=== PATIENT | female | born 1970 | race Two or more races ===

== ENCOUNTER 2023-05-02 10:32 | Outpatient (OUT) | payer OTHER, SELFPAY ==
--- NOTE | 2023-05-02 10:49 | US_ITS ---
[address] [address] Patient Name: GENE MURPHY MRN: [id number] date: 1970 Sex: F Assigned Patient Location: US Current Patient Location: US Accession/Order Number: [id number] Exam Date: 05/02/2023 11:05 Report Date: 05/02/2023 12:07 At the request of: NON-STAFF PHYSICIAN Procedure: US thyroid STUDY: US thyroid, [id number] HISTORY: Screening mammogram Z12.31 TECHNIQUE: Multiple 2 dimensional grayscale and color doppler images through the thyroid. COMPARISONS: Thyroid ultrasound 04/19/2022 FINDINGS: The thyroid is homogeneous in echotexture and demonstrates normal color Doppler flow. The right lobe measures 7.5 x 2.4 x 2.7 cm for a volume of 23.4 cc. The left lobe measures 7.1 x 2.3 x 2.3 cm for a volume of 17.6 cc. The isthmus measures 0.8 cm. Nodule 1 Size: 1.4 x 1.1 x 1.2 cm, previously 1.2 x 1 x 1.3, similar. Location: Inferior right thyroid lobe Composition: Solid or almost completely solid-2 Echogenicity: Hyperechoic or isoechoic-1 Shape: Wider than tall-0 Margin: Evw-umkybis-0 Echogenic foci: None or large comet tail artifacts-0 TI-RADS: 3 Nodule 2 Size: 1.1 x 1.2 x 1 cm, previously 1.3 x 0.9 x 0.8 cm, similar. Location: Mid left thyroid lobe Composition: Solid or almost completely solid-2 Echogenicity: Hypoechoic-2 Shape: Wider than tall-0 Margin: Hnu-plbxnzg-0 Echogenic foci: None or large comet tail artifacts-0 TI-RADS: 4 Several additional smaller nodules which are either cystic or spongiform morphology. US/US thyroid IMPRESSION: 1. The nodular goiter with the majority of the thyroid nodules with either a cystic or spongiform morphology. 2. Single TI-RADS 3 nodule in the right lobe of thyroid measuring up to 1.4 cm and a single TI-RADS 4 nodule in the left lobe of thyroid measuring up to 1.2 cm; similar size and appearance compared with 04/19/2022. Recommend follow-up ultrasound in one year. Electronically authenticated by: MERRY GOMEZ Date: 05/02/2023 12:07
== END 2023-05-02 10:33 | disposition home or self-care (01) ==
LOC: US 10:35
DX: E04.2 Nontoxic multinodular goiter (principal)
CPT/HCPCS: 76536

== ENCOUNTER 2024-05-08 10:12 | Outpatient (OUT) | payer OTHER, SELFPAY ==
--- NOTE | 2024-05-08 10:14 | US_ITS ---
[address] [address] Patient Name: GENE MURPHY MRN: [id number] date: 1970 Sex: F Assigned Patient Location: US Current Patient Location: Accession/Order Number: [id number] Exam Date: 05/08/2024 10:18 Report Date: 05/09/2024 04:56 At the request of: NON-STAFF PHYSICIAN Procedure: US thyroid EXAMINATION: US thyroid HISTORY: Nontoxic Multinodular Goiter COMPARISON: Ultrasound thyroid 05/02/2023 FINDINGS: RIGHT LOBE: Enlarged and heterogeneous. Contains a 1.4 cm TR 4 nodule within inferior pole. Contains several TR 3 nodules, largest is 1.4 cm within the inferior pole. Lobe size: 6.5 x 2.3 x 2.7 cm LEFT LOBE: Enlarged and heterogeneous. Contains a 1.2 cm TR 4 nodule within mid body and a 1.1 cm TR 3 nodule within inferior pole. Several colloid cysts. Lobe size: 7.0 x 2.1 x 2.4 cm ISTHMUS: Thickened and heterogeneous. Thickness: 11 mm US/US thyroid IMPRESSION: 1. Enlarged heterogeneous thyroid gland containing multiple small nodules suggestive of multinodular goiter. 2. Bilateral TR 4 nodules, 1.4 cm on right and 1.2 cm on left. Follow-up in one year recommended. TR4 (moderately suspicious): If > 1.0 cm, follow-up ultrasound in 1, 2, 3, and 5 years. If > 1.5 cm, fine needle aspiration (FNA). Electronically authenticated by: MALENA CALL Date: 05/09/2024 04:56
== END 2024-05-08 10:13 | disposition home or self-care (01) ==
LOC: US 10:12
DX: E04.2 Nontoxic multinodular goiter (principal)
CPT/HCPCS: 76536

== ENCOUNTER 2024-09-05 12:11 | Outpatient (OUT) | payer OTHER, SELFPAY ==
--- NOTE | 2024-09-05 12:13 | US_ITS ---
The [address] [address] Patient Name: GENE MURPHY MRN: [id number] date: 1970 Sex: F Assigned Patient Location: US Current Patient Location: US Accession/Order Number: [id number] Exam Date: 09/05/2024 12:15 Report Date: 09/05/2024 14:20 At the request of: NON-STAFF PHYSICIAN Procedure: US pelvis w/ transvaginal EXAMINATION: US pelvis w/ transvaginal HISTORY: pain with intercourse, dyspereunia N94.10 COMPARISON: No relevant comparison available. FINDINGS: Transabdominal and transvaginal images The uterus is not visualized consistent with hysterectomy The right ovary is not visualized. The left ovary is normal measuring 2.5 x 0.8 x 1.8 cm. Normal color and Doppler flow. 0.8 cm area of anechoic echogenicity, follicle versus cyst US/US pelvis w/ transvaginal IMPRESSION: No abnormality observed Electronically authenticated by: DIMITRI FRANCO Date: 09/05/2024 14:20
--- NOTE | 2024-09-05 12:15 | MM_ITS ---
Patient Name: GENE MURPHY MR#: [id number] : 1970 Exam Date: 09/05/2024 Ordering Doctor: Non-Staff Physician RADIOLOGY REPORT PROCEDURE: MM TOMOSYNTHESIS SCREENING BI COMPARISON: MM TOMOSYNTHESIS SCREENING BI, 08/19/2018. MM TOMOSYNTHESIS SCREENING BI, 08/22/2019. INDICATIONS: screening for malignant neoplasm of breast Calculator Name NCI Breast Cancer Risk Assessment Tool 5 Year Breast Cancer Risk 0.70% Lifetime Breast Cancer Risk 5.20% Personal Breast Cancer No Personal Ovarian Cancer No Treatments None Family Cancers None LOCATION: [facility] BREAST COMPOSITION: There are scattered areas of fibroglandular density. FINDINGS: DIAGNOSTIC CATEGORY 2--BENIGN FINDING. NO CHANGE FROM COMPARISON. Scattered benign-appearing lymph nodes are present. RIGHT BREAST: No significant suspicious finding. LEFT BREAST: No significant suspicious finding. RECOMMENDATIONS: ROUTINE MAMMOGRAM AND CLINICAL EVALUATION IN 12 MONTHS. PLEASE NOTE: A NORMAL MAMMOGRAM DOES NOT EXCLUDE THE POSSIBILITY OF BREAST CANCER. A CLINICALLY SUSPICIOUS PALPABLE LUMP SHOULD BE BIOPSIED. Dictated by: Percy Early MD on 09/05/2024 at 14:08 Approved by: Percy Early MD on 09/05/2024 at 14:08
--- OUTSIDE RECORDS SUMMARY | 2024-09-05 12:16 | XMS_ITS | CCD ---
Author Organization [facility] [place] [facility] Care Team Providers Care Transverse Abdominal Muscle Nurse Name Role Phone Unavailable Primary Care Provider UnavailWING Liang Referring Unavailable SHIRASITA MEDINA Referring Unavailable SHIRA, SITA Referring Unavailable SHIRA, SITA Referring Unavailable MOWING CASTRO F Referring Unavailable Unavailable Primary Care Provider Enzo guardado MISC, DOCTOR Attending Unavailable MISC, DOCTOR Consulting Unavailable MISC, DR CISNEROS Admitting Unavailable Services, [facility] Primary Care Provider AINSLEY KAPLAN Attending Unavailable SERVICES, [facility] Primary Care Unava ilable Allergies Allergy Classification Reported Allergen(s) Allergy Type Date of Onset Reaction(s) Facility (2 sources) Latex; Translations: [LATEX] Propensity to adverse reactions to drug 05-05-2020 [facility] Medications Current Medications Medication Drug Class(es) Dates Sig (Normalized) Sig (Original) amoxicillin 500 mg oral tablet (1 source) Penicillin-class Antibacterial End: 08-15-2024 take 1 tablet by mouth in the morning, then take 1 tablet by mouth at bedtime amoxicillin (AMOXIL) 500 MG tablet Take 1 tablet (500 mg total) by mouth in the morning and 1 tablet (500 mg total) before bedtime. 08/15/2024 Discontinued (Therapy completed) ascorbic acid 1000 mg oral tablet (1 source) Vitamin C End: 08-15-2024 take 1 tablet by mouth in the morning ascorbic acid, vitamin C, (VITAMIN C) 1000 mg tablet Take 1 tablet (1,000 mg total) by mouth in the morning. 08/15/2024 Discontinued (Therapy completed) cholecalciferol 0.01 mg chewable tablet (1 source) Vitamin D End: 08-15-2024 cholecalciferol, vitamin D3, 10 mcg (400 unit) tablet,chewable Chew and swallow. 08/15/2024 Discontinued (Therapy completed) elderberry fruit and flower 460-115 mg capsule (1 source) End: 08-15-2024 elderberry fruit and flower 460-115 mg capsule Take by mouth. 08/15/2024 Discontinued (Therapy completed) 24 hr metoprolol succinate 25 mg extended release oral tablet (5 sources) beta-Adrenergic Devika take 1 tablet by mouth once daily metoprolol succinate XL (TOPROL-XL) 25 mg 24 hr tablet Take 1 tablet (25 mg total) by mouth daily. Active zzraozzm-wlrx-YB-calc ium &mins (THERAGRAN-M) 9 mg iron-400 mcg tablet (1 source) sqpbngqw-aqpj-HD - calcium &mins (THERAGRAN-M) 9 mg iron-400 mcg tablet Take 1 tablet by mouth in the morning. Gummies cause of swallowing issues. Active Zinc Sulfate (1 source) End: 08-15-2024 zinc sulfate (ZINC-15 ORAL) Take by mouth. 08/15/2024 Discontinued (Therapy completed) Problems Active Problems Problem Classification Problem Date Documented Da te Episodic/Chronic Abdominal pain (2 sources) Pain in pelvis; Translations: [Pelvic and perineal pain] Onset: 08-15-2024 08-15-2024 Episodic Other female genital disorders (1 source) Pain in female genitalia on intercourse; Translations: [Unspecified dyspareunia] 08-15-2024 Chronic Other female genital disorders (1 source) Unspecified dyspareunia; Translations: [Unspecified dyspareunia] Onset: 08-15-2024 Chronic Other nutritional; endocrine; and metabolic disorders (1 source) Obese class I; Translations: [Obesity (BMI 30.0-34.9)] Onset: 08-15-2024 08-15-2024 Chronic Other screening for suspected conditions (not mental disorders or infectious disease) (2 sources) Patient encounter status; Translations: [Encounter for screening mammogram for malignant neoplasm of breast] Onset: 08-15-2024 08-15-2024 Episodic Screening and history of mental health and substance abuse codes (2 sources) Standardized adult depression screening tool completed ; Translations: [Encounter for screening for depression] Onset: 08-15-2024 08-15-2024 Episodic Thyroid disorders (8 sources) Non-toxic multinodular goiter; Translations: [Nontoxic multinodular goiter] Onset: 07-19-2018 Chronic Unclassified (1 source) Annual Exam Onset: 08-15-2024 Past or Other Problems Problem Classification Problem Date Documented Da te Episodic/Chronic Cardiac dysrhythmias (1 source) Tachycardia; Translations: [Tachycardia, unspecified] Onset: 07-19-2018 10-04-2022 Episodic Mood disorders (1 source) Mood disorders Onset: 08-15-2024 08-15-2024 Unclassified (1 source) Onset: 08-15-2024 08-15-2024 Results Test Name Value Interpretation Reference Range Facil ity US THYROIDon 04-20-2022 US THYROID EXAMINATION: US THYROID HISTORY: Non-toxic multinodular goiter COMPARISON: Ultrasound thyroid 01/12/2015 FINDINGS: RIGHT LOBE: Enlarged, heterogeneous thyroid lobe containing numerous nodules. The 3 largest are 16 mm TR 3, 13 mm TR 3, 12 mm TR 2. Lobe size: 6.4 x 2.2 x 2.5 cm LEFT LOBE: Enlarged, heterogeneous thyroid lobe containing numerous nodules. The 3 largest/no suspicious 13 mm TR 4, 10 mm TR 4, 12 mm TR 2. Lobe size: 5.9 x 2.0 x 2.3 cm. ISTHMUS: Heterogeneous and thickened. Thickness: 6 mm IMPRESSION: 1. Enlarged, heterogeneous thyroid gland with numerous nodules suggestive of multinodular goiter. Follow-up in one year recommended. TR4 (moderately suspicious): If > 1.0 cm Follow-up ultrasound in 1, 2, 3, and 5 years. If > 1.5 cm fine needle aspiration (FNA). TR3 (mildly suspicious): > 1.5 cm, follow-up ultrasound in 1, 3, and 5 years. > 2.5 cm, fine needle aspiration. Electronically authenticated by: MALENA CALL Date: 2022-04-20 07:40 Normal [facility] BASIC METABOLIC PANELon 10-04 Calcium [Mass/Vol] 9.6 mg/dL Normal 8.6-10.3 [facility] Comment on above: Performed By: #### 0 0071 #### [facility] [address] [place] [address], [facility] Chloride [Moles/Vol] 102 mmol/L Normal 98-107 [facility] Comment on above: Performed By: #### 0 0071 #### [facility] [address] [place] [address], [place] CO2 [Moles/Vol] 27 mmol/L Normal 21-31 [facility] Comment on above: Performed By: #### 0 0071 #### [facility] [address] [place] [address], [place] Creatinine [Mass/Vol] 0.91 mg/dL Normal 0.60-1.20 [facility] Comment on above: Performed By: #### 0 0071 #### [facility] [address] [place] [address], [place] GFR/1.73 sq M predicted among blacks MDRD (S/P/Bld) [Vol rate/Area] mL/min/{1.73_m2} Normal >60 [facility] Comment on above: Performed By: #### 0 0071 #### [facility] [address] [place] [address], [place] GFR/1.73 sq M predicted among non-blacks MDRD (S/P/Bld) [Vol rate/Area] mL/min/{1.73_m2} Normal >60 [facility] Comment on above: Performed By: #### 0 0071 #### [facility] [address] [place] [address], [place] Glucose [Mass/Vol] 88 mg/dL Normal 70-100 [facility] Comment on above: Performed By: #### 0 0071 #### [facility] [address] [place] [address], [place] Potassium [Moles/Vol] 4.0 mmol/L Normal 3.5-5.1 [facility] Comment on above: Performed By: #### 0 0071 #### [facility] [address] [place] [address], [place] Sodium [Moles/Vol] 136 mmol/L Normal 136-145 [facility] Comment on above: Performed By: #### 0 0071 #### [facility] [address] [address], [facility] Urea nitrogen [Mass/Vol] 20 mg/dL Normal 7-25 [facility] Comment on above: Performed By: #### 0 0071 #### [facility] [address] [place] [address], [facility] URINALYSISon 10-15-2020 Appearance (U) CLEAR Normal CLEAR [facility] Comment on above: Performed By: #### 1 0008 #### [facility] [address] [place] [address], [facility] Bilirubin [Mass/Vol] Negative Normal NEGATIVE [facility] Comment on above: Performed By: #### 1 0008 #### [facility] [address] [place] [address], [place] BLOOD Negative Normal NEGATIVE [facility] Comment on above: Performed By: #### 1 0008 #### [facility] [address] [facility] [place] [address], [place] Color (U) YELLOW Normal YELLOW [facility] Comment on above: Performed By: #### 1 0008 #### [facility] [address] [facility] [place] [address], [facility] Glucose [Mass/Vol] Negative Normal NEGATIVE [facility] Comment on above: Performed By: #### 1 0008 #### [facility] [address] [place] [address], [place] KETONE Negative Normal NEGATIVE [facility] Comment on above: Performed By: #### 1 0008 #### [facility] [address] [place] [address], [place] LEUK BRITTNY Negative Normal NEGATIVE [facility] Comment on above: Performed By: #### 1 0008 #### [facility] [address] MICRO NOT DONE Normal [facility] Comment on above: Result Comment: Micr oscopics not performed on urines with negative chemical reactions unless requested in original order Performed By: #### 1 0008 #### [facility] [address] Nitrite Ql (U) Negative Normal NEGATIVE [facility] Comment on above: Performed By: #### 1 0008 #### [facility] [address] pH (Bld) 6.0 Normal 5.0-8.0 [facility] Comment on above: Performed By: #### 1 0008 #### [facility] [address] Protein (U) [Mass/Vol] Negative Normal NEGATIVE [facility] Comment on above: Performed By: #### 1 0008 #### [facility] [address] SPEC GRAV 1.017 Normal 1.015-1.020 [facility] Comment on above: Performed By: #### 1 0008 #### [facility] [address] US THYROIDon 01-15-2020 US THYROID EXAMINATION: THYROID ULTRASOUND 01/14/2020 COMPARISON: Thyroid ultrasound dated 08/25/2019. Fine-needle aspiration dated 02/13/2019. HISTORY: ORDERING SYSTEM PROVIDED HISTORY: Nontoxic multinodular goiter TECHNOLOGIST PROVIDED HISTORY: Reason for Exam: goiter Acuity: Chronic Type of Exam: Subsequent/Follow-up Previous benign biopsy. FINDINGS: Right thyroid lobe: 6.6 x 2.4 x 2.7 cm Left thyroid lobe: 6.5 x 2.1 x 2.5 cm Isthmus: 1.1 cm Thyroid Gland: The thyroid gland is enlarged and diffusely heterogeneous. There is no abnormal hyperemia. Nodules: Multiple partially cystic and spongiform nodules are seen in both thyroid lobes, not significantly changed from the prior. The largest on the right measures up to 1.1 cm. Largest on the left measures up to 1.6 cm. Cervical lymphadenopathy: No abnormal lymph nodes in the imaged portions of the neck. IMPRESSION: Unchanged bilateral thyroid nodules with reported history of benign biopsy. Need for continued follow-up thyroid ultrasound should be determined clinically. Interpreted by: Debo Garcia DO Signed by: Debo Garcia DO 01/15/20 Final result Normal [facility] Unchanged bilateral thyroid nodules with reported history of benign biopsy. Need for continued follow-up thyroid ultrasound should be determined clinically. [facility] MD EXAMINATION: THYROID ULTRASOUND 01/14/2020 COMPARISON: Thyroid ultrasound dated 08/25/2019. Fine-needle aspiration dated 02/13/2019. HISTORY: ORDERING SYSTEM PROVIDED HISTORY: Nontoxic multinodular goiter TECHNOLOGIST PROVIDED HISTORY: Reason for Exam: goiter Acuity: Chronic Type of Exam: Subsequent/Follow-up Previous benign biopsy. FINDINGS: Right thyroid lobe: 6.6 x 2.4 x 2.7 cm Left thyroid lobe: 6.5 x 2.1 x 2.5 cm Isthmus: 1.1 cm Thyroid Gland: The thyroid gland is enlarged and diffusely heterogeneous. There is no abnormal hyperemia. Nodules: Multiple partially cystic and spongiform nodules are seen in both thyroid lobes, not significantly changed from the prior. The largest on the right measures up to 1.1 cm. Largest on the left measures up to 1.6 cm. Cervical lymphadenopathy: No abnormal lymph nodes in the imaged portions of the neck. [facility] MD Oneil, Mh[employer] Incoming Radiant Results From [employer] - 01/15/2020 5:01 PM EDT EXAMINATION: THYROID ULTRASOUND 01/14/2020 COMPARISON: Thyroid ultrasound dated 08/25/2019. Fine-needle aspiration dated 02/13/2019. HISTORY: ORDERING SYSTEM PROVIDED HISTORY: Nontoxic multinodular goiter TECHNOLOGIST PROVIDED HISTORY: Reason for Exam: goiter Acuity: Chronic Type of Exam: Subsequent/Follow-up Previous benign biopsy. FINDINGS: Right thyroid lobe: 6.6 x 2.4 x 2.7 cm Left thyroid lobe: 6.5 x 2.1 x 2.5 cm Isthmus: 1.1 cm Thyroid Gland: The thyroid gland is enlarged and diffusely heterogeneous. There is no abnormal hyperemia. Nodules: Multiple partially cystic and spongiform nodules are seen in both thyroid lobes, not significantly changed from the prior. The largest on the right measures up to 1.1 cm. Largest on the left measures up to 1.6 cm. Cervical lymphadenopathy: No abnormal lymph nodes in the imaged portions of the neck. IMPRESSION: Unchanged bilateral thyroid nodules with reported history of benign biopsy. Need for continued follow-up thyroid ultrasound should be determined clinically. [place], [place] T3, Freeon 01-14-2020 Free T3 [Mass/Vol] 3.67 pg/mL Normal 2.02-4.43 [facility] Comment on above: Performed By: #### F T4, TSH #### [facility] [address] [place], [place] [id number] Casino Worker: Keith Calixto DO #### FT3 #### [facility] [place], [place] [id number] Casino Worker: Gagandeep Doyle MD Free T3 [Mass/Vol] 3.67 pg/mL 2.02 - 4. 43 pg/mL [place], [place] T4, Freeon 01-14-2020 Thyroxine, Free 1.04 ng/dL 0.93 - 1.7 ng/dL [place], [place] TSH without Reflexon 020 TSH Qn 0.46 m[IU]/L [place], [place] Thyroid Stim. Horm.on 2019 TSH Qn 0.46 m[IU]/L Normal 0.30-5.00 [facility] Comment on above: Performed By: #### F T4, TSH #### [facility] [address] [place] [address] Casino Worker: Keith Calixto DO #### FT3 #### [employer] [address] [place], [place] [phone] Casino Worker: Gagandeep Doyle MD Thyroxine, Freeon 01-14-2020 Thyroxine, Free 1.04 ng/dL Normal 0.93-1.70 [facility] Comment on above: Performed By: #### F T4, TSH #### [facility] [address] [place] [address] Casino Worker: Keith Calixto DO #### FT3 #### [facility] [employer] [address] [place] [address] [id number] Casino Worker: Gagandeep Doyle MD T3, Freeon 08-25-2019 Free T3 [Mass/Vol] 3.42 pg/mL Normal 2.02-4.43 [facility] Comment on above: Performed By: #### F T4, TSH #### [facility] [address] [place] [address] Casino Worker: Keith Calixto DO #### FT3 #### [facility] [employer] [address] [place] [address] [phone] Casino Worker: Gagandeep Doyle MD T3, FreeOrdered By: Ondina Silva on 08-25-2019 Free T3 [Mass/Vol] 3.42 pg/mL 2.02 - 4. 43 pg/mL [facility] Phone: T4, FreeOrdered By: Ondina Silva on 08-25-2019 Thyroxine, Free 1.06 ng/dL 0.93 - 1.7 ng/dL [employer] Phone: TSH without ReflexOrdered By : Sita Silva on 08-25-2019 TSH Qn 0.61 m[IU]/L [facility] Phone: Thyroid Stim. Horm.on 2018 TSH Qn 0.61 m[IU]/L Normal 0.30-5.00 [facility] Comment on above: Performed By: #### F T4, TSH #### [facility] [address] [place] [address] Casino Worker: Keith Calixto DO #### FT3 #### [facility] [employer] [address] [place], [place] [id number] Casino Worker: Gagandeep Doyle MD Thyroxine, Freeon 08-25-2019 Thyroxine, Free 1.06 ng/dL Normal 0.93-1.70 [facility] Comment on above: Performed By: #### F T4, TSH #### [facility] [address] [place], [place] [phone] Casino Worker: Keith Calixto DO #### FT3 #### [facility] [address] [place], [place] [phone] Casino Worker: Gagandeep Doyle MD US THYROIDon 08-25-2019 US THYROID EXAMINATION: THYROID ULTRASOUND, 08/25/2019 COMPARISON: Biopsy images 02/13/2019, outside study 01/08/2019 HISTORY: ORDERING SYSTEM PROVIDED HISTORY: Nontoxic multinodular goiter TECHNOLOGIST PROVIDED HISTORY: Reason for Exam: nontoxic multinodular goiter Acuity: Chronic Type of Exam: Subsequent/Follow-up FINDINGS: Right thyroid lobe: 24.7 x 26.6 x 61.9 mm Left thyroid lobe: 20.5 x 25.4 x 63.9 mm Isthmus: 11.6 mm Thyroid Gland: Thyroid gland remains heterogeneous with normal vascularity. Thyroid gland is enlarged. Nodules: There are multiple predominantly hypoechoic subcentimeter and cystic bilateral thyroid nodules, overall probably similar in comparison to the prior study. Several small colloid cysts. The largest nodule on the right measures up to 9 mm. No specific follow-up imaging is recommended for these small subcentimeter nodules. The largest in the left lobe which was previously biopsied measures 13.9 x 12.3 x 9.5 mm. No new dominant solid-appearing nodules are seen. NODULE: Left 1 Size: 13.9 x 12.3 x 9.5 mm Location: Left mid posterior 1. Composition: Almost completely solid (2) 2. Echogenicity: Hypoechoic (2) 3. Shape: [id number]-jjfi (0) 4. Margins: Ill-defined (0) 5. Echogenic foci: None (0) ACR TI-RADS total points: 4 ACR TI-RADS risk category: TR4 Prior biopsy: Yes.Benign Significant growth: No. Change in features: No. Change in ACR TI-RADS risk category: No. Cervical lymphadenopathy: No abnormal lymph nodes in the imaged portions of the neck. IMPRESSION: Similar enlarged heterogeneous multinodular gland; the majority of the nodules are well under 1 cm in size and no specific follow-up imaging is recommended. The largest TR 4 nodule in the left lobe measures up to 1.4 cm and has been previously biopsied (with reportedly benign results). RECOMMENDATIONS: NODULE 1: ACR TI-RADS TR4: Recommend: Follow-up ultrasound in 1 year. ACR TI-RADS recommendations: TR5 (>= 7 points): FNA if >= 1 cm; follow-up if 0.5-0.9 cm in 1, 2, 3, 4, and 5 years TR4 (4-6 points): FNA if >= 1.5 cm; follow-up if 1.0-1.4 cm in 1, 2, 3, and 5 years TR3 (3 points): FNA if >= 2.5 cm; follow-up if 1.5-2.4 cm in 1, 3, and 5 years TR2 (2 points): No FNA or follow-up TR1 (0 points): No FNA or follow-up ACR TI-RADS recommends that no more than two nodules with the highest ACR TI-RADS point total should be biopsied and no more than four nodules should be followed. Interpreted by: Richie Gama MD Signed by: Richie Gama MD 08/25/19 Final result Normal [facility] US THYROIDOrdered By: Jorge Silva on 08-25-2019 Similar enlarged heterogeneous multinodular gland; the majority of the nodules are well under 1 cm in size and no specific follow-up imaging is recommended. The largest TR 4 nodule in the left lobe measures up to 1.4 cm and has been previously biopsied (with reportedly benign results). RECOMMENDATIONS: NODULE 1: ACR TI-RADS TR4: Recommend: Follow-up ultrasound in 1 year. ACR TI-RADS recommendations: TR5 (>= 7 points): FNA if >= 1 cm; follow-up if 0.5-0.9 cm in 1, 2, 3, 4, and 5 years TR4 (4-6 points): FNA if >= 1.5 cm; follow-up if 1.0-1.4 cm in 1, 2, 3, and 5 years TR3 (3 points): FNA if >= 2.5 cm; follow-up if 1.5-2.4 cm in 1, 3, and 5 years TR2 (2 points): No FNA or follow-up TR1 (0 points): No FNA or follow-up ACR TI-RADS recommends that no more than two nodules with the highest ACR TI-RADS point total should be biopsied and no more than four nodules should be followed. [employer] Phone: EXAMINATION: THYROID ULTRASOUND, 08/25/2019 COMPARISON: Biopsy images 02/13/2019, outside study 01/08/2019 HISTORY: ORDERING SYSTEM PROVIDED HISTORY: Nontoxic multinodular goiter TECHNOLOGIST PROVIDED HISTORY: Reason for Exam: nontoxic multinodular goiter Acuity: Chronic Type of Exam: Subsequent/Follow-up FINDINGS: Right thyroid lobe: 24.7 x 26.6 x 61.9 mm Left thyroid lobe: 20.5 x 25.4 x 63.9 mm Isthmus: 11.6 mm Thyroid Gland: Thyroid gland remains heterogeneous with normal vascularity. Thyroid gland is enlarged. Nodules: There are multiple predominantly hypoechoic subcentimeter and cystic bilateral thyroid nodules, overall probably similar in comparison to the prior study. Several small colloid cysts. The largest nodule on the right measures up to 9 mm. No specific follow-up imaging is recommended for these small subcentimeter nodules. The largest in the left lobe which was previously biopsied measures 13.9 x 12.3 x 9.5 mm. No new dominant solid-appearing nodules are seen. NODULE: Left 1 Size: 13.9 x 12.3 x 9.5 mm Location: Left mid posterior 1. Composition: Almost completely solid (2) 2. Echogenicity: Hypoechoic (2) 3. Shape: Gvelt-ltcr-tdli (0) 4. Margins: Ill-defined (0) 5. Echogenic foci: None (0) ACR TI-RADS total points: 4 ACR TI-RADS risk category: TR4 Prior biopsy: Yes.Benign Significant growth: No. Change in features: No. Change in ACR TI-RADS risk category: No. Cervical lymphadenopathy: No abnormal lymph nodes in the imaged portions of the neck. [employer] Phone: Oneil, [place] Incoming Radiant Results From [employer] - 08/25/2019 5:06 PM EST EXAMINATION: THYROID ULTRASOUND, 08/25/2019 COMPARISON: Biopsy images 02/13/2019, outside study 01/08/2019 HISTORY: ORDERING SYSTEM PROVIDED HISTORY: Nontoxic multinodular goiter TECHNOLOGIST PROVIDED HISTORY: Reason for Exam: nontoxic multinodular goiter Acuity: Chronic Type of Exam: Subsequent/Follow-up FINDINGS: Right thyroid lobe: 24.7 x 26.6 x 61.9 mm Left thyroid lobe: 20.5 x 25.4 x 63.9 mm Isthmus: 11.6 mm Thyroid Gland: Thyroid gland remains heterogeneous with normal vascularity. Thyroid gland is enlarged. Nodules: There are multiple predominantly hypoechoic subcentimeter and cystic bilateral thyroid nodules, overall probably similar in comparison to the prior study. Several small colloid cysts. The largest nodule on the right measures up to 9 mm. No specific follow-up imaging is recommended for these small subcentimeter nodules. The largest in the left lobe which was previously biopsied measures 13.9 x 12.3 x 9.5 mm. No new dominant solid-appearing nodules are seen. NODULE: Left 1 Size: 13.9 x 12.3 x 9.5 mm Location: Left mid posterior 1. Composition: Almost completely solid (2) 2. Echogenicity: Hypoechoic (2) 3. Shape: Dmwtb-bhew-tkhd (0) 4. Margins: Ill-defined (0) 5. Echogenic foci: None (0) ACR TI-RADS total points: 4 ACR TI-RADS risk category: TR4 Prior biopsy: Yes.Benign Significant growth: No. Change in features: No. Change in ACR TI-RADS risk category: No. Cervical lymphadenopathy: No abnormal lymph nodes in the imaged portions of the neck. IMPRESSION: Similar enlarged heterogeneous multinodular gland; the majority of the nodules are well under 1 cm in size and no specific follow-up imaging is recommended. The largest TR 4 nodule in the left lobe measures up to 1.4 cm and has been previously biopsied (with reportedly benign results). RECOMMENDATIONS: NODULE 1: ACR TI-RADS TR4: Recommend: Follow-up ultrasound in 1 year. ACR TI-RADS recommendations: TR5 (>= 7 points): FNA if >= 1 cm; follow-up if 0.5-0.9 cm in 1, 2, 3, 4, and 5 years TR4 (4-6 points): FNA if >= 1.5 cm; follow-up if 1.0-1.4 cm in 1, 2, 3, and 5 years TR3 (3 points): FNA if >= 2.5 cm; follow-up if 1.5-2.4 cm in 1, 3, and 5 years TR2 (2 points): No FNA or follow-up TR1 (0 points): No FNA or follow-up ACR TI-RADS recommends that no more than two nodules with the highest ACR TI-RADS point total should be biopsied and no more than four nodules should be followed. [employer] Phone: IR BIOPSY THYROID PERC CORE NEEDLEon 02-13-2019 IR BIOPSY THYROID PERC CORE NEEDLE PROCEDURE: ULTRASOUND GUIDED THYROID FNA 02/13/2019 COMPARISON: Outside thyroid ultrasound 01/08/2019 HISTORY: ORDERING SYSTEM PROVIDED HISTORY: Nontoxic multinodular goiter Left thyroid nodule approximately 1.5 cm, for biopsy; patient has a history of bilateral thyroid nodule biopsy in 2017. TECHNIQUE AND FINDINGS: This procedure was performed by Dr. Gama. Informed consent was obtained after the procedure was discussed in detail including the risk, benefits, and alternatives. [place] protocol was followed. The neck was prepped and draped in sterile fashion and local anesthesia was achieved with lidocaine. 25 gauge needle was advanced under ultrasound guidance into a 1.5 cm heterogeneous hypoechoic left posterior mid thyroid nodule and fine-needle aspiration was performed. 3 passes were performed and the patient tolerated the procedure well. Ultrasound images show placement of the needle within the nodule on all occasions. Samples were handed directly to the pathologist for review. Preliminary evaluation confirms adequate specimens for assessment. Postprocedure images show no local complication. Band-Aid was applied. The patient left the department in stable condition. IMPRESSION: Successful ultrasound-guided fine-needle aspiration of the largest nodule in the left lobe of thyroid gland. Multinodular gland. Interpreted by: Richie Gama MD Signed by: Richie Gama MD 02/13/19 Final result Normal [facility] Surgical Pathologyon 019 Surgical Pathology (NOTE) [id number] [facility] [address] [facility] [address] [facility]. [place], [place] [address] SURGICAL PATHOLOGY REPORT Patient Name: AGNIESZKA MURPHY MR#: [id number] Specimen #[id number] Final Diagnosis SPECIMEN A : LEFT THYROID NODULE, FINE NEEDLE ASPIRATION: ADEQUATE FOR EVALUATION CONSISTENT WITH BENIGN FOLLICULAR NODULE/NODULAR GOITER NEGATIVE FOR MALIGNANT CELLS SPECIMEN B : LEFT THYROID NODULE, CELL BLOCK: CONSISTENT WITH BENIGN FOLLICULAR NODULE/NODULAR GOITER NEGATIVE FOR MALIGNANT CELLS Walter Chavez M.D. Electronically Signed Out j/02/14/2019 Frozen Section Diagnosis Left thyroid nodule, FNA, pass #1-#3: Adequate. On site evaluation conveyed to Dr. Gama on , at 1:40 pm (Philomena Chavez MD) Clinical Information Left thyroid nodule FNA, bilateral thyroid multiple nodules Source: A: Left thyroid aspirate, smears, cytospins, Diff Quik B: Left thyroid aspirate, sediment (needle rinse) Gross Description Specimen A : The specimen consists of the aspirate of the left thyroid. Three Papanicolaou stained smears and three Diff-Quik are prepared for microscopic examination. Specimen B : The specimen consists of the sediment (needle rinse) from the left thyroid. The entire specimen is submitted for cell block preparation. Microscopic Description A. Five Pap stained smear slides and three Diff-Quik stained smear slides are reviewed. Microscopic examination is performed. B. Two LEXII stained cell block slides are reviewed. Microscopic examination is performed. Normal [facility] Comment on above: Performed By: #### P PPES #### [facility] [address] [place] [address] Casino Worker: Jase Tam MD Vital Signs Date Time Vital Sign Value Performing Clinician Siena henson 08-15-2024 09:35-0500 Body height 157.5 cm Ainsley Cindy NUMERICAL CONTROL NESTING OPERATOR-SENIOR FINANCE MANAGER Work Phone: [facility] 08-15-2024 09:35-0500 Body mass index (BMI) [Ratio] 30.03 kg/m2 Ainsley Kaplan NUMERICAL CONTROL NESTING OPERATOR-SENIOR FINANCE MANAGER Work Phone: [facility] 08-15-2024 09:35-0500 Body weight 74.48 kg Ainsley Kaplan NUMERICAL CONTROL NESTING OPERATOR-SENIOR FINANCE MANAGER Work Phone: [facility] 08-15-2024 09:35-0500 Diastolic blood pressure 74 mm[Hg] Ainsley Kaplan NUMERICAL CONTROL NESTING OPERATOR-SENIOR FINANCE MANAGER Work Phone: [facility] 08-15-2024 09:35-0500 Systolic blood pressure 124 mm[Hg] Ainsley Kaplan NUMERICAL CONTROL NESTING OPERATOR-SENIOR FINANCE MANAGER Work Phone: [facility] Encounters Encounter Date Encounter Type Care Provider Facility Start: 08-15-2024 End: 08-15-2024 Patient encounter procedure Ainsley Kaplan NUMERICAL CONTROL NESTING OPERATOR-SENIOR FINANCE MANAGER Work Phone: [facility] Start: 08-15-2024 End: 08-15-2024 Periodic preventive med est patient 40-64yrs Ainsley Kaplan NUMERICAL CONTROL NESTING OPERATOR-SENIOR FINANCE MANAGER Work Phone: [facility] Comment on above: Well woman exam with routine gynecological exam (Primary Dx); Screening mammogram for breast cancer; Standardized adult depression screening tool completed; Dyspareunia, female; Pelvic pain Start: 08-15-2024 End: 08-15-2024 ambulatory [facility] Start: 08-15-2024 Encounter for gynecological examination (general) (routine) without abnormal findings AINSLEY M [facility] Start: 04-19-2022 End: 04-20-[address] CISNEROS [facility] Facility: Start: 01-14-2020 End: 01-17-2020 Patient encounter procedure [facility] Start: 01-14-2020 End: 01-16-2020 Subsequent hospital visit by physician [facility] Ultrasound Rm 105 [facility] Comment on above: Nontoxic multinodula r goiter Start: 08-25-2019 End: 08-28-2019 Patient encounter procedure [facility] Start: 08-25-2019 End: 08-27-2019 Subsequent hospital visit by physician [facility] Comment on above: Nontoxic multinodula r goiter Start: 02-13-2019 End: 02-16-2019 Patient encounter procedure WING F MOOSA [facility] Procedures Date Procedure Procedure Detail Performing Clinician Start: 08-15-2024 Adult depression screening assessment Ainsley Kaplan NUMERICAL CONTROL NESTING OPERATOR-SENIOR FINANCE MANAGER Work Phone: Start: 10-04-2022 H/O: hysterectomy S/P hysterectomy Ainsley Kaplan NUMERICAL CONTROL NESTING OPERATOR-SENIOR FINANCE MANAGER Work Phone: Start: 01-14-2020 Us soft tissue head & neck real time imge docm WING MOOSA Start: 01-14-2020 Assay of free thyroxine WING MOOSA Start: 01-14-2020 Assay of thyroid stimulating hormone tsh WING MOOSA Start: 01-14-2020 Assay of triiodothyronine t3 free WING MOOSA Start: 01-14-2020 Us soft tissue head & neck real time imge docm Wing F Moosa Work Phone: Start: 01-14-2020 Assay of free thyroxine Sita Alliso n Work Phone: Start: 01-14-2020 Assay of thyroid stimulating hormone tsh Sita Shira Work Phone: Start: 01-14-2020 Assay of triiodothyronine t3 free Sita Shira Work Phone: Start: 08-25-2019 Us soft tissue head & neck real time imge docm WING MOOSA Start: 08-25-2019 Assay of free thyroxine WING MOOSA Start: 08-25-2019 Assay of thyroid stimulating hormone tsh WING MOOSA Start: 08-25-2019 Assay of triiodothyronine t3 free WING MOOSA Start: 08-25-2019 Us soft tissue head & neck real time imge docm Sita Shira NUMERICAL CONTROL NESTING OPERATOR - SENIOR FINANCE MANAGER Work Phone: Start: 08-25-2019 Assay of free thyroxine Sita Alliso n NUMERICAL CONTROL NESTING OPERATOR - SENIOR FINANCE MANAGER Work Phone: Start: 08-22-2019 Mammography Ainsley Kaplan NUMERICAL CONTROL NESTING OPERATOR-SENIOR FINANCE MANAGER Work Phone: Start: 02-13-2019 Biopsy thyroid percutaneous core needle WING GODFREY Start: 02-13-2019 Level i surg pathology gross examination only WING GODFREY Start: 10-30-2018 H/O: kidney donation History of kidney donation Ainsley Kaplan NUMERICAL CONTROL NESTING OPERATOR-SENIOR FINANCE MANAGER Work Phone: Plan of Treatment Date Care Activity Detail Author Start: 08-15-2025 [facility] Start: 08-15-2025 Depression Screening [facility] Start: 08-15-2025 Tobacco Screening [facility] Start: 08-15-2024 End: 08-15-2025 DBT Breast - bilateral screening Mammography screening bilateral with CAD Imaging Routine Screening mammogram for breast cancer Expected: 08/15/2024, Expires: 08/15/2025 [employer] Work Phone: Comment on above: Expected: 08/15/2024 , Expires: 08/15/2025 Start: 08-15-2024 End: 08-15-2025 US Pelvis transabdominal and transvaginal Ultrasound pelvic with transvaginal Imaging Routine Dyspareunia, female Pelvic pain Expected: 08/15/2024, Expires: 08/15/2025 [facility] Comment on above: Expected: 08/15/2024 , Expires: 08/15/2025 Start: 05-04-2024 Influenza vaccination [facility] ine [facility] Start: 10-04-2023 Adult BMI Follow Up Plan Adult BMI Follow Up Plan [facility] Start: 08-22-2020 Screening for malign [facility]oplasm [facility] Start: 05-04-2020 Influenza vaccination Flu vacc ine (Season Ended) [place] Start: 05-04-2019 Influenza vaccination Flu vaccine (# 1) [employer] Phone: Start: 2018 Administration of varicella zoster vaccine Zoster (Shingles) Vaccine (1 of 2) [facility] Start: 2018 Breast cancer screen Breast cancer s crecaryn [place] Work Phone: Start: 2018 Colon cancer screen colonoscopy Colon cancer screen colonoscopy [facility] [employer] Phone: Start: 2018 Screening for malign ant neoplasm of breast Breast cancer screen [place], [place] Start: 2018 Screening for malign ant neoplasm of colon Colon cancer screen colonoscopy [place], [place] Start: 2018 Shingles Vaccine (1 of 2) Aviles gles Vaccine (1 of 2) [facility] [employer] Phone: Start: 2008 Lipid panel Lipid screen [place], [place] Start: 2008 Lipid screen Lipid screen [facility] [employer] Phone: Start: 1989 Cervical cancer screen Cervical canc er screen [facility] Phone: Start: 1989 Screening for malign ant neoplasm of cervix Cervical cancer screen [place], [place] Start: 12-21-1987 DTaP,Tdap and Td Vac cines (1 - Tdap) DTaP,Tdap and Td Vaccines (1 - Tdap) [facility] Start: 12-21-1987 DTaP/Tdap/Td vaccine (1 - Tdap) DTaP/Tdap/Td vaccine (1 - Tdap) [place], [place] Start: 12-21-1983 HIV screen HIV screen [facility] [employer] Phone: Start: 12-21-1983 HIV screening HIV screen [place], [place] Start: 12-21-1979 DTaP/Tdap/Td vaccine (1 - Tdap) DTaP/Tdap/Td vaccine (1 - Tdap) [facility] Phone: Payers Date Payer Category Payer Private Health Insurance NATI THOMAS xxxxxxxxx 2016-Present [phone] [address] [place] [address] xxxxxxxxx [id number] 2012 Commercial 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 C are - POS [employer] [id number] 1968 Unknown [id number] 1968 Unknown [id number] 1968 Unknown [id number] 1968 Unknown [id number] 1968 Unknown [id number] 1968 Unknown [id number] 1968 Unknown [id number] 1959 Private Health Insurance [id number] Social History Date Type Detail Facility [facility] [employer] Work Phone: Start: 1970 Sex Assigned At Not on file [employer] Phone: Start: 10-04-2022 [facility] Never [facility] tobacco [facility] Start: 10-04-2022 Tobacco use and exposure Smokeless tobacco non-user [facility] Start: 08-15-2024 Alcoholic beverage intake Lifetime non-drinker (finding) [facility] Start: 09-24-2020 End: 08-15-2024 History of Social function [facility] Start: 09-24-2020 End: 08-15-2024 Tobacco use panel [facility] Adolescent depressio n screening assessment 3 [facility] Start: 04-08-2015 Sex Female (finding) [facility] [place] [facility] History of Present illness Narrative 08-15-2024 Ainsley Kaplan, NUMERICAL CONTROL NESTING OPERATOR-SENIOR FINANCE MANAGER - 08/15/2024 9:30 AM EST Note Date & Type Note Facility 08-15-2024 History of Present illness Narrative Agnieszka Murphy is a pleasant 53 y.o. female who presents for annual purse framer exam. She is postmenopausal. Hysterectomy: yes - partial If yes, in her 40s due to pain with intercourse. She is sexually active. Sometimes has painful intercourse. Sometimes pelvic pain. 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 Vaginal Bleeding none Hot flashes / menopausal symptoms - Mild Bladder issues - None Bowel issues - None History of abnormal Pap smear: yes - years ago Last pap: Prior to hysterectomy Family history of uterine or ovarian cancer: no Family hx pancreatic or prostate cancer: no Family history of colon cancer: no Family history of breast cancer: no Regular self breast exam: yes Last mammogram: unsure Dexa Scan: not due Colonoscopy: no PHQ9 depression screenin Flu shot this flu season: no OB History 3 Para 3 Term 3 AB Living 3 SAB IAB Ectopic Multiple Live Births 3 Past Medical History: Diagnosis Date Disease of thyroid gland Past Surgical History: Procedure Laterality Date HYSTERECTOMY 2016 KIDNEY SURGERY Left 10/2018 lt kidney removed and donated Family History Problem Relation Age of Onset Diabetes Father Diabetes Mother Hypertension Mother Current Outpatient Medications Medication Sig Dispense Refill metoprolol succinate XL (TOPROL-XL) 25 mg 24 hr tablet Take 1 tablet (25 mg total) by mouth daily. eqgcnpht-etou-LK-calcium &mins (THERAGRAN-M) 9 mg iron-400 mcg tablet Take 1 tablet by mouth in the morning. Gummies cause of swallowing issues. No current facility-administered medications for this visit. ALLERGIES Allergies Allergen Reactions Latex Hives Review of Systems Constitutional: Negative. Respiratory: Negative. Negative for chest tightness and shortness of breath. Cardiovascular: Negative. Negative for chest pain and palpitations. Gastrointestinal: Negative. Negative for constipation, diarrhea, nausea and vomiting. Endocrine: Negative. Genitourinary: Positive for dyspareunia and pelvic pain. Negative for vaginal bleeding. Musculoskeletal: Negative. Skin: Negative. Allergic/Immunologic: Negative. Neurological: Negative. Hematological: Negative. Psychiatric/Behavioral: Negative. Physical Exam BP 124/74 Ht 157.5 cm (5' 2 ) Wt 74.5 kg (164 lb 3.2 oz) BMI 30.03 kg/m Physical Exam Vitals and nursing note reviewed. Constitutional: Appearance: Normal appearance. HENT: Head: Normocephalic and atraumatic. Cardiovascular: Rate and Rhythm: Normal rate and regular rhythm. Pulses: Normal pulses. Heart sounds: Normal heart sounds. Pulmonary: Effort: Pulmonary effort is normal. Breath sounds: Normal breath sounds. Chest: Breasts: Breasts are symmetrical. Right: Normal. No mass, skin change or tenderness. Left: Normal. No mass, skin change or tenderness. Abdominal: General: Bowel sounds are normal. Palpations: Abdomen is soft. Genitourinary: General: Normal vulva. Labia: Right: No rash or lesion. Left: No rash or lesion. Vagina: Normal. Adnexa: Right adnexa normal and left adnexa normal. Right: No mass, tenderness or fullness. Left: No mass, tenderness or fullness. Comments: Uterus and cervix surgically absent. Vaginal cuff in good repair. Musculoskeletal: General: Normal range of motion. Cervical back: Normal range of motion and neck supple. Skin: General: Skin is warm and dry. Neurological: Mental Status: She is alert and oriented to person, place, and time. Psychiatric: Mood and Affect: Mood normal. Speech: Speech normal. Behavior: Behavior normal. Thought Content: Thought content normal. Judgment: Judgment normal. Assessment / Plan Agnieszka was seen today for annual exam. Diagnoses and all orders for this visit: Well woman exam with routine gynecological exam Screening mammogram for breast cancer - Mammography screening bilateral with CAD; Future Standardized adult depression screening tool completed Dyspareunia, female - Ultrasound pelvic with transvaginal; Future Pelvic pain - Ultrasound pelvic with transvaginal; Future Encouraged kegel exercises. BMI is above average; Discussed eating tips for weight loss and and exercise steps. Discussed SBE. Discussed taking a multivitamin. Discussed Calcium and Vitamin D for prevention of osteoporosis. Discussed need for yearly mammogram after 40 yo. Order placed. Patient to discuss colon cancer screening recommendations with PCP. Educational material provided. All questions answered. RTO for annual purse framer exam and / or PRN. PHANI Michaud APRN-CNP 08/15/24 1008 documented in this encounter [facility] [facility] Evaluation note Note Date & Type Note Facility Evaluation note Diagnosis Nontoxic multinodular goiter documented in this encounter [employer] Phone: Evaluation note Note Date & Type Note Facility Evaluation note Diagnosis Well woman exam with routine gynecological exam- Primary Routine gynecological examination Screening mammogram for breast cancer Standardized adult depression screening tool completed Dyspareunia, female Pelvic pain [facility] Instructions Attachments Note Date & Type Note Facility Instructions The following attachments cannot be sent through Care Everywhere.Pelvic muscle (Kegel) exercises ([place])Calcium and vitamin D for bone health ([place])Dyspareunia (painful sex) ([place])documented [facility] this [facility] Advance Directives No Advanced Directives Records FoundDocuments on File Type Date Recorded Patient Head Of Digital Expl anation Advance Directives and Living Will Power of Tax Compliance Agent Documents on File Type Date Recorded Patient Head Of Digital Expl anation Advance Directives and Living Will Power of Tax Compliance Agent Reason for Referral Status Reason Specialty Diagnoses / Procedures Referre d By Contact Referred To Contact Open Radiology Diagnoses Nontoxic multinodular goiter [place] [address] [place] [address] Status Reason Specialty Diagnoses / Procedures Referred By Contact Referred To Contact Pending Review Radiology Diagnoses Nontoxic multinodular goiter Procedures US THYROID Sita Silva APRN - CNP [address] [place] [address] Assessments Diagnosis Nontoxic multinodular goiter Summary Purpose Family History No Family History Records FoundNo Family History Records FoundNo Family History Records FoundNo Family History Records Found Additional Source Comments Reason for Visit (unrecogniz ed section and content) Status Reason Specialty Diagnoses / Procedures Referred By Contact Referred To Contact Not Required - [facility] Radiology Diagnoses Nontoxic multinodular goiter Procedures [facility] US,HEAD/NECK TISSUES,B-SCAN/REAL TIME ShiraSita medina APRN - SENIOR FINANCE MANAGER [address] [place] [address] [facility] [address] [place] [address] Status Reason Specialty Diagnoses / Procedures Referre d By Contact Referred To Contact Open Radiology Diagnoses Nontoxic multinodular goiter Procedures [facility] US,HEAD/NECK TISSUES,B-SCAN/REAL TIME ShiraSita medina APRN - SENIOR FINANCE MANAGER [address] [place] [address] [facility] [address] [place] [address] Reason Comments Annual Exam INFORMATION SOURCE (unrecogn ized section and content) DATE CREATED AUTHOR 01/18/2020 [facility] DATE CREATED AUTHOR AUTHOR'S ORGANIZ ATION 12/16/2020 [facility] DATE CREATED AUTHOR AUTHOR'S ORGANIZ ATION 04/26/2022 [facility] DATE CREATED AUTHOR AUTHOR'S ORGANIZ ATION 08/17/2024 [facility] Care Teams (unrecognized sec tion and content) Transverse Abdominal Muscle Nurse Relationship Specialty Start Date End Date [address] PCP - General Family Medicine 01/04/18 FOR RECORDS PERTAINING TO PATIENTS WHO ARE OR HAVE BEEN ENROLLED IN A CHEMICAL DEPENDENCY/SUBSTANCEABUSE PROGRAM, SOME INFORMATION MAY BE OMITTED. This clinical summary was aggregated from multiple sources. Caution should be exercised in using it in the provision of clinical care. This summary normalizes information from multiple sources, and as a consequence, information in this document may materially change the coding, format and clinical context of patient data. In addition, data may be omitted in some cases. CLINICAL DECISIONS SHOULD BE BASED ON THE PRIMARY CLINICAL RECORDS. [facility] [employer] [facility]. provides no warranty or guarantee of the accuracy or completeness of information in this document.
== END 2024-09-05 12:12 | disposition home or self-care (01) ==
LOC: US 12:11
DX: Z12.31 Encounter for screening mammogram for malignant neoplasm of breast (principal); N94.10 Unspecified dyspareunia
CPT/HCPCS: 76830; 76856; 77063; 77067